=== PATIENT | female | born 1955 | race Caucasian/White ===

== ENCOUNTER → 2018-01-29 01:47 | Outpatient (CLI) | payer BC, SELFPAY ==
[2018-01-29 10:48] LABS: Anion Gap 9.7 mmol/L (3-11); BUN 16 mg/dL (7-18); CO2 29.3 mmol/L (21.0-32.0); CREATININE 1.04 mg/dL (0.55-1.02); Calcium 9.1 mg/dL (8.5-10.1); Chloride 104 mmol/L (98-107); Cholesterol 184 mg/dL (50-200); Estimated GFR 53.52 (mL/min/1.73m2); Glucose 129 mg/dL (70-100); HDL Cholesterol 54 mg/dL (40-60); LDL CHOLESTEROL 115 mg/dL (<100); Potassium 3.6 mmol/L (3.5-5.1); Sodium 143 mmol/L (136-145); Triglyceride 113 mg/dL (30-150)
== END ==
DX: E78.5 Hyperlipidemia, unspecified (principal); I10 Essential (primary) hypertension
CPT/HCPCS: 36415; 80048; 80061; 83721

== ENCOUNTER 2018-03-24 11:26 | Outpatient (CLI) | payer BC, SELFPAY ==
[2018-03-24 13:24] LABS: Hemoglobin A1C 6.1 % (4.5-6.2)
== END 2018-03-24 11:46 ==
DX: R73.01 Impaired fasting glucose (principal)
CPT/HCPCS: 36415; 83036

== ENCOUNTER 2019-04-25 01:42 | Outpatient (CLI) | payer BC, SELFPAY ==
[2019-04-25 09:38] LABS: Hemoglobin A1C 6.2 % (4.5-6.2)
[2019-04-25 10:03] LABS: ALT 34 U/L (14-59); AST 15 U/L (15-37); Albumin 3.8 g/dL (3.4-5.0); Alkaline Phosphatase 60 U/L (46-116); Anion Gap 9.9 mmol/L (3-11); BUN 20 mg/dL (7-18); Bilirubin, Total 0.4 mg/dL (0.2-1.0); CO2 31.1 mmol/L (21.0-32.0); CREATININE 0.99 mg/dL (0.55-1.02); Calcium 9.4 mg/dL (8.5-10.1); Calculated LDL 99 mg/dL; Chloride 101 mmol/L (98-107); Cholesterol 169 mg/dL (50-200); Estimated GFR 56.47 (mL/min/1.73m2); Glucose 140 mg/dL (70-100); HDL Cholesterol 49 mg/dL (40-60); Potassium 3.6 mmol/L (3.5-5.1); Sodium 142 mmol/L (136-145); Total Protein 7.7 g/dL (6.4-8.2); Triglyceride 106 mg/dL (30-150)
== END 2019-04-25 02:02 ==
DX: I10 Essential (primary) hypertension (principal); Z00.00 Encounter for general adult medical examination without abnormal findings; Z13.220 Encounter for screening for lipoid disorders; E03.9 Hypothyroidism, unspecified
CPT/HCPCS: 36415; 80053; 80061; 83036

== ENCOUNTER 2019-04-28 02:11 | Outpatient (CLI) | payer BC, SELFPAY ==
--- NOTE | 2019-04-28 12:21 | DI.MAMMO_ITS ---
EXAM: MG MAMMO SCREENING CLINICAL HISTORY: screening Z12.39 TECHNIQUE: Mammograms were interpreted according to the usual protocol including computer analysis w Typesafe system, tomosynthesis and C-view imaging. COMPARISON: Comparison with previous examinations including March 2016 FINDINGS: The breasts are heterogeneously dense with multiple areas of focal asymmetric density seen bilaterall y. No dominant mass or clumped microcalcification is seen. Comparison with previous examinations in cluding March 2016 shows no gross interval change in appearance in comparison with the previous marky dies. IMPRESSION: No specific evidence of malignancy at this time. Routine screening examinations are suggested yearly intervals in this age group according to the ACS/ACR guidelines. Category 1, breast density category C. BI-RADS Cat 1 - Negative Breast Density - Category C - Heterogeneously dense
== END 2019-04-28 02:31 ==
DX: Z12.31 Encounter for screening mammogram for malignant neoplasm of breast (principal)
CPT/HCPCS: 77063; 77067

== ENCOUNTER 2019-05-26 01:35 | Outpatient (CLI) | payer BC, SELFPAY ==
--- NOTE | 2019-05-26 14:51 | DI.US_ITS ---
EXAM: US CAROTID CLINICAL HISTORY: decreased right carotid pulse, carotid stenosis rt, I65.21 occlusion and stenosis, rt carotid artery TECHNIQUE: Ultrasound performed using standard protocol. COMPARISON: No exams were available for comparison FINDINGS: There is a small focus of plaque in the left common carotid bulb. The velocity measurements in the in ternal carotid arteries are within the normal range. The vessels are noted to be tortuous, right grea ter than left. Both vertebral arteries show antegrade flow. IMPRESSION: Small amount of plaque in the left common carotid bulb. Tortuous vessels. No evidence of significant stenosis or occlusion.
== END 2019-05-26 01:55 ==
PROVIDERS: Visit Provider Emergency Medicine
DX: I65.21 Occlusion and stenosis of right carotid artery (principal); I77.89 Other specified disorders of arteries and arterioles; R09.89 Other specified symptoms and signs involving the circulatory and respiratory systems
CPT/HCPCS: 93880

== ENCOUNTER 2020-07-19 03:00 | Outpatient (CLI) | payer OTHER, SELFPAY ==
[2020-07-19 09:41] LABS: HCT 46.3 % (36.0-46.0); HGB 15.4 g/dL (11.2-15.7); MCH 29.6 pg (27.0-33.0); MCHC 33.3 % (32.0-36.0); MPV 10.4 fL (8.0-11.0); Platelet Count 240 10^3/uL (130-400); RDW-SD 42.7 fL; WBC 7.19 10^3/uL (4.4-10.8)
[2020-07-19 10:08] LABS: Hemoglobin A1C 6.9 % (<5.7)
[2020-07-19 10:54] LABS: Iron 99 ug/dL (50-170)
[2020-07-19 11:05] LABS: ALT 55 U/L (14-59); AST 28 U/L (15-37); Albumin 4.2 g/dL (3.4-5.0); Alkaline Phosphatase 54 U/L (46-116); Anion Gap 7.2 mmol/L (3-11); BUN 19 mg/dL (7-18); Bilirubin, Total 0.5 mg/dL (0.2-1.0); CO2 28.8 mmol/L (21.0-32.0); Calcium 9.5 mg/dL (8.5-10.1); Chloride 102 mmol/L (98-107); Estimated GFR 55.64 (mL/min/1.73m2); Ferritin 244 ng/mL (8-252); Glucose 151 mg/dL (74-106); Sodium 138 mmol/L (136-145); TSH (W/Ref FT4) 3.06 uIU/mL (0.36-3.74); Total Protein 7.8 g/dL (6.4-8.2)
== END 2020-07-19 03:20 ==
DX: I10 Essential (primary) hypertension (principal); D50.9 Iron deficiency anemia, unspecified; R73.01 Impaired fasting glucose; R42 Dizziness and giddiness; G47.00 Insomnia, unspecified
CPT/HCPCS: 36415; 80053; 85027; 82728; 83036; 83540; 84443

== ENCOUNTER 2021-07-30 01:58 | Outpatient (CLI) | payer BC, SELFPAY ==
[2021-07-30 10:58] LABS: Hemoglobin A1C 6.3 % (<5.7)
[2021-07-30 11:46] LABS: ALT 35 U/L (14-59); AST 22 U/L (15-37); Albumin 4.3 g/dL (3.4-5.0); Alkaline Phosphatase 57 U/L (46-116); Anion Gap 10.1 mmol/L (3-11); BUN 24 mg/dL (7-18); Bilirubin, Total 0.5 mg/dL (0.2-1.0); CO2 27.9 mmol/L (21.0-32.0); Calcium 9.8 mg/dL (8.5-10.1); Chloride 103 mmol/L (98-107); Estimated GFR 55.47 (mL/min/1.73m2); Glucose 123 mg/dL (74-106); Potassium 3.9 mmol/L (3.5-5.1); Sodium 141 mmol/L (136-145)
== END 2021-07-30 01:59 | disposition home or self-care (01) ==
LOC: LBO 01:58
DX: I10 Essential (primary) hypertension (principal); R73.01 Impaired fasting glucose
CPT/HCPCS: 36415; 80053; 83036

== ENCOUNTER 2022-09-22 03:29 | Outpatient (CLI) | payer BC, SELFPAY ==
[2022-09-22 10:37] LABS: ALT 40 U/L (14-59); AST 26 U/L (15-37); Albumin 4.1 g/dL (3.4-5.0); Alkaline Phosphatase 56 U/L (46-116); BUN 23 mg/dL (7-18); Bilirubin, Total 0.5 mg/dL (0.2-1.0); CREATININE 1.1 mg/dL (0.55-1.02); Calcium 9.6 mg/dL (8.5-10.1); Calculated LDL 109 mg/dL (<100); Chloride 102 mmol/L (98-107); Cholesterol 191 mg/dL (<200); Estimated GFR 54.73 (mL/min/1.73m2); Glucose 158 mg/dL (74-106); HDL Cholesterol 59 mg/dL (40-60); Potassium 3.7 mmol/L (3.5-5.1); Sodium 143 mmol/L (136-145); Total Protein 8.1 g/dL (6.4-8.2); Triglyceride 118 mg/dL (<150)
== END 2022-09-22 03:30 | disposition home or self-care (01) ==
PROVIDERS: PCP Nurse Practitioner Family; Visit Provider Nurse Practitioner Family
DX: E11.9 Type 2 diabetes mellitus without complications (principal)
CPT/HCPCS: 36415; 80053; 80061

== ENCOUNTER 2022-10-07 10:31 | Day surgery (SDC) | payer BC, SELFPAY ==
--- NOTE | 2022-10-06 13:11 | PDOC.DSDIS_ITS ---
Date of service: 10/07/22 Time of Service: 13:26 Discharge Plan Disposition Patient Disposition: Home Condition: Good Discharge Details Reason For Visit: colon scope Attending Provider: Ruthann Byrd Primary Care Provider: Aiden Laughlin Home Meds and New Rx's Prescriptions: Continued amitriptyline 25 mg tablet 25 mg PO HS Qty: 90 4RF Rx Instructions: 1 TAB HS hydrochlorothiazide 25 mg tablet 25 mg PO QAM Qty: 90 4RF propranolol 10 mg tablet 10 mg PO BID Qty: 180 4RF Rx Instructions: 1 TAB BID melatonin 5 MG tablet 5 mg PO HS sumatriptan succinate 100 mg tablet See Rx Instructions .ROUTE .COMPLEX Qty: 16 4RF Dose Instruction: TAKE 1/2 TABLET BY MOUTH DIRECTED FOR MIGRAINE Rx Instructions: TAKE 1/2 TABLET BY MOUTH DIRECTED FOR MIGRAINE Discontinued bisacodyl [Dulcolax (bisacodyl)] 5 mg tablet,delayed release (DR/EC) 5 mg PO .Take as directed Qty: 4 0RF polyethylene glycol 3350 17 gram/dose powder 238 g PO DIRECTED Qty: 238 0RF No Action metformin 500 mg tablet 500 mg PO HS losartan 25 mg tablet 25 mg PO HS Discharge Instructions Additional Instructions: DSU Colonoscopy Post- Op Instructions Instructions for Everyone who is given Anesthesia: For your safety, please do the following for the next twenty-four (24) hours: *Do Not operate a motor vehicle (car, truck, motorcycle, etc.) *Do Not drink alcoholic beverages or use any recreational drugs for the first 24 hours or while taking pain medications. The medications in your body may have a reaction that can be dangerous. *Do Not make any important decisions or sign any important papers. Findings: X3 Polyps Follow up: My office will send a letter in 2-3 weeks; as to what type of polyps and when to repeat the scope, most likely in 3 years time. 1. No lifting over 20 pounds or strenuous activity for the first 24 hours after your procedure. After 24 hours there are no restrictions on your activity but you may feel fatigued for a few days. 2. After you arrive home you may have a light meal and return to your normal diet as you can tolerate it without feeling sick to your stomach. 3. You may have a bloated, gaseous feeling in your belly (abdomen) after a colonoscopy. Passing gas and belching will help. Walking or lying down on your left side with your knees flexed may relieve the discomfort. Call the office at [phone] (Office) or [phone] (Hospital) right away if you notice any of the following: a.Vomiting of blood or ?coffee ground stools?. b.Rectal bleeding 1Tbsp, blood clots or continuous bleeding. c.Severe belly (abdominal) pain. d.A hard distended belly (abdomen) and an inability to pass gas. 4. Please don?t expect to have a normal BM (bowel movement) for 2-3 days after your procedure. 5. If there are questions regarding the findings of your procedure, please contact your doctor 6. If you are unable to contact your doctor with a problem, contact the hospital at [phone]. 7. Continue all your regular medications unless directed otherwise. I understand the above instructions and have no questions. Signature of Patient or Adult Escort Name of Responsible Adult Escort Signature of Nurse Date/Time Activity:: see above Diet:: see above Discharge Orders Discharge Orders: Discharge Order (Routine); Ordered 10/07/22 Ordered By: Ruthann Byrd
[2022-10-07 10:44] VITALS: BP 143/86; PULSE 80; RESP 16; TEMP 36.8; O2SAT 95
--- NOTE | 2022-10-07 11:20 | W.ANESPRE ---
General Info Date of Service Date Performed: 10/07/22 Height: 5 ft 0.5 in Weight: 88.2 kg Body Mass Index (BMI): 37.3 Surgical Procedure: Operation Date: 10/07/22 10:05 Proposed Procedure Side Surgeon p Colonoscopy possible Polypectomy Ruthann Byrd, DO Meds Allergies and Home Medications Allergies Allergy/AdvReac Type Severity Reaction Status Date / Time No Known Allergies Allergy Verified 10/07/22 10:42 Home Medication Medication Instructions Recorded melatonin 5 mg tablet 5 mg PO HS 03/18/17 sumatriptan succinate 100 mg tablet See Rx Instructions .Route 07/16/22 .COMPLEX #16 tabs amitriptyline 25 mg tablet 25 mg PO HS #90 tab-caps 07/22/22 hydrochlorothiazide 25 mg tablet 25 mg PO QAM #90 tabs 07/22/22 propranolol 10 mg tablet 10 mg PO BID #180 tab-caps 07/22/22 losartan 25 mg tablet 25 mg PO HS 10/06/22 metformin 500 mg tablet 500 mg PO HS 10/06/22 Current Visit Medications: Current Medications Generic Name Dose Route Start Last Admin Trade Name Freq PRN Reason Stop Dose Admin Hyoscyamine Sulfate 0.125 mg 10/07/22 09:16 Hyoscyamine 0.125 Mg Sl/Oral/Chew SL DIRECTED PRN Ringer's Solution 1,000 mls @ 80 mls/hr 10/07/22 06:00 IV 10/07/22 23:59 [facility] IV Miscellaneous Supplies 1 each 10/07/22 06:00 Iv Access IV 10/07/22 23:59 DIRECTED [facility] Ondansetron HCl 4 mg 10/07/22 09:16 Ondansetron 4 Mg/2 Ml Vial IVP Q4H PRN PRN Nausea / Vomiting Sodium Chloride 0 ml 10/07/22 06:00 Normal Saline Flush 10 Ml Syr IV 10/07/22 23:59 PRN PRN Sodium Chloride 0 ml 10/07/22 06:00 Normal Saline 10 Ml Vial IJ 10/07/22 23:59 DIRECTED PRN Sterile Water 0 ml 10/07/22 06:00 Water,Injection,Sterile 10 Ml Vial IJ 10/07/22 23:59 DIRECTED PRN PFSH Active Problems Active Problems: Problem Status Onset Code Positive colorectal cancer screening using Cologuard test R19.5 Hypertension I10 Insomnia 03/12/16 G47.00 Lumbago M54.5 Left knee pain 02/23/15 M25.562 Migraine G43.909 Neck pain M54.2 Numbness and tingling in both hands 03/12/16 R20.0, R20.2 Retinal hemorrhage 05/21/05 H35.60 Vertigo 02/16/14 R42 Increased body mass index (BMI) R63.8 Elevated fasting glucose ~01/2016 R73.01 Status post abdominal hysterectomy Z90.710 Onychomycosis B35.1 History of tobacco use Z87.891 Dizziness R42 Diabetes E11.9 Medical History 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) Surgical History Surgical History Abdominal hysterectomy Appendectomy Bilateral salpingectomy with oophorectomy Tobacco Smoking/Tobacco Use Status: Former Tobacco Use Passive smoking exposure: Yes Second hand exposure: Yes Alcohol Alcohol Intake: current Alcohol intake frequency: a few times a month Substance Use Substance use: Never Substance use type: does not use Details: alcohol t-5 Vital Signs and Lab Results Vital Signs Most Recent Vital Signs in EMR: Most Recent Vital Signs Temp Pulse Resp BP Pulse Ox 36.8 C 80 16 143/86 H 95 10/07/22 10:44 10/07/22 10:44 10/07/22 10:44 10/07/22 10:44 10/07/22 10:44 Point of Care Results Point of Care Results: Finger Stick Blood Glucose 140 10/07/22 10:48 Lab Results Blood Type / Crossmatch: No Data to Display Complete Blood Count: No Data to Display Complete Metabolic Panel: Sodium 143 mmol/L (136-145) 09/22/22 09:39 Potassium 3.7 mmol/L (3.5-5.1) 09/22/22 09:39 Chloride 102 mmol/L (98-107) 09/22/22 09:39 Carbon Dioxide 34.0 mmol/L (21.0-32.0) H 09/22/22 09:39 BUN 23 mg/dL (7-18) H 09/22/22 09:39 Creatinine 1.1 mg/dL (0.55-1.02) H 09/22/22 09:39 Est GFR (CKD-EPI 2020) 54.73 (mL/min/1.73m2) 09/22/22 09:39 Calcium 9.6 mg/dL (8.5-10.1) 09/22/22 09:39 Albumin 4.1 g/dL (3.4-5.0) 09/22/22 09:39 Glucose 158 mg/dL (74-106) H 09/22/22 09:39 Liver Function Panel: Alanine Aminotransferase (ALT/SGPT) 40 U/L (14-59) 09/22/22 09:39 Aspartate Amino Transf (AST/SGOT) 26 U/L (15-37) 09/22/22 09:39 Coagulation Panel: No Data to Display Cardiac Panel: No Data to Display Arterial Blood Gas: No Data to Display Venous Blood Gas: No Data to Display Pancreas Panel: No Data to Display Thyroid Panel: No Data to Display Infectious Disease: No Data to Display Blood Cultures: No Data to Display Toxicology Panel: No Data to Display Imaging and Studies Imaging and Studies Study information below may be from another EMR and interpreted by another provider. Please see original notes in EMR for more complete details. Carotid Artery Summary:: 05/26/2019: IMPRESSION: Small amount of plaque in the left common carotid bulb. Tortuous vessels. No evidence of significant stenosis or occlusion. Anesthesia Assessment and Plan Anesthesia History Personal History: No History of Anesthesia Complications Family History: No Family History of Anesthesia Complications Exercise Tolerance Exercise Tolerance: Metabolic Equivalents>4 Pertinent Negatives Pertinent Negatives: No Symptoms of GERD, No Major Cardiovascular Symptoms or Complaints and No Major Pulmonary Symptoms or Complaints Cardiac & Pulmonary Exam Cardiac Exam: Normal S1/S2 Heart Sounds Pulmonary Exam: Clear Bilateral Breath Sounds Implantable Cardiac Device Does patient have a Pacemaker or an ICD?: No Airway Exam Known Difficult Airway: No Mallampati Class: 2 Mouth Opening: Normal (> 3cm) Thyromental Distance: Greater than 3 cm Neck Range of Motion: Full ROM Neck Circumference: Normal Teeth Condition: Normal Dentition ASA Classification ASA Score: ASA 2 Emergency Case?: No NPO Status NPO Status: NPO Clears >2 hours, Solids >8 hours Anesthesia Plan Resuscitation Status: Full Code Anesthesia Technique: General Anesthesia Airway Planned: Natural Airway Monitors Used: Standard Monitors
[2022-10-07 11:23] VITALS: BMI 37.3
[2022-10-07] MEDS: Lactated Ringers 1,000 ML 80 ML IV (12:21)
--- NOTE | 2022-10-07 12:38 | BOWEL_PTH ---
PATIENT: Noemi Simmons LOC: [facility] U#:[id number] AGE/SX: 67/F ROOM: RE10/07/[address]: Ruthann Byrd : 1955 BED: DIS: 10/07/2022 SPEC #: [id number] RECD: 10/07/22 13:40 STATUS: JAI REQ #: [id number] LAURA: 10/07/22 12:[address]: Ruthann Byrd DEPT: Surgical Specimen RECD BY: Dianelys Sommers ENTERED: 10/07/22 13:42 SP TYPE: Bowel OTHR DR: Aiden Fraser, NATHAN Tissues: 1 - BIOPSY BOWEL 2 - BIOPSY BOWEL 3 - BIOPSY BOWEL Procedures: GROSS AND MICRO LEVEL 4 Comments: [id number]
--- NOTE | 2022-10-07 13:20 | W.COLOREPORT ---
Date of service: 10/07/22 Time of Service: 13:20 Colonoscopy Report Date of procedure: 10/07/22 Pre-op diagnosis general: + Cologuard Post-op diagnosis procedure note: other (polyp x3) Surgeon: Ruthann Byrd Anesthesia Type: General:No Airway Estimated blood loss (mL): 1 Pathology: other Complications: None Disposition: same day Prep: Miralax/Dulcolax Retraction Time: 25 Procedure Description: After informed consent was obtained the patient was taken to the procedure room and placed in a left decubitous position. Monitors were applied and a time out was done. The patients name, date of , procedure, allergies to medications and metal in their body was reviewed. The patient was then sedated. Once sedated and comfortable a rectal exam was done. External exam was normal. Internal exam revealed a normal sphincter tone and no palpable masses. The scope was then introduced and retrofelexed. No internal hemorrhoids were identified. The scope was then advanced to the cecum w/some difficulty. The colon is on a long floppy mesentery. The colon was also quite spasmodic. We did have to use sigmoid pressure to advance the scope into the cecum. The TI and appendiceal orifice were identified. The prep was BBPS 2 in all segments for a total of 6. The scope was then slowly retracted over 25 minutes back into the rectum. She had 2 polyps that are removed with a cold snare. One was at 20 cm and one was at 80 cm. All specimens are retrieved and no bleeding is noted. The polyp at 20 cm was a 5 mm and pedunculated. The polyp at 80 cm is 0.75 cm and flat. She had a flat 5 mm polyp in the rectum that is removed with a cold biting snare. There is no diverticula noted. The mucosa is pink and healthy with a normal vascular pattern the scope was removed and the patient was woken up and taken back to Same day surgery in stable condition. The patient tolerated the procedure well and there were no immediate complications. Follow up: The patient should follow up in 5 years unless they develop changes in bowel habits or other new gastrointestinal complaints.
[2022-10-07 13:22] VITALS: BP 108/62; PULSE 78; RESP 16; TEMP 36.5; O2SAT 98
--- NOTE | 2022-10-07 13:30 | W.ANESPOSTOP ---
Postoperative Evaluation Date, Time and Location Date Performed: 10/07/22 Time Performed: 13:27 Patient Location: Day Surgery Unit Vital Signs Most Recent Imported Vital Signs: Most Recent Vital Signs Temp Pulse Resp BP Pulse Ox 36.5 C 78 16 108/62 98 10/07/22 13:22 10/07/22 13:22 10/07/22 13:22 10/07/22 13:22 10/07/22 13:22 Pain Score Most Recent Pain Score: Most Recent Pain Score Pain Level 0 10/07/22 13:22 Assessment Mental Status: Awake (Alert & Oriented to Patient Baseline) Airway and Respiratory Function: Patent airway with normal (patient baseline) respiratory exam Cardiovascular Function: Hemodynamically Stable Hydration Status: Adequately Hydrated Nausea & Vomiting: No Nausea or Vomiting Pain: Pt. Denies Any Pain Peripheral Nerve Block: Patient did not receive a nerve block
[2022-10-07 13:52] VITALS: BP 108/76; PULSE 63; RESP 16; TEMP 36.6; O2SAT 100
== END 2022-10-07 14:10 | disposition home or self-care (01) ==
PROVIDERS: PCP Nurse Practitioner Family; Visit Provider Surgery
PROC: 0DJD8ZZ Inspection of Lower Intestinal Tract, Via Natural or Artificial Opening Endoscopic (ICD-10-PCS; CPT 45378; principal; 2022-10-07 10:00)
DX: R19.5 Other fecal abnormalities (principal); K63.5 Polyp of colon; E11.9 Type 2 diabetes mellitus without complications; Z79.84 Long term (current) use of oral hypoglycemic drugs
CPT/HCPCS: 45385; 88305; J2704

== ENCOUNTER 2022-11-12 02:15 | Outpatient (CLI) | payer BC, SELFPAY | END 2022-11-12 02:35 | LOC: DI 02:15 | PROVIDERS: PCP Nurse Practitioner Family; Visit Provider Nurse Practitioner Family | DX: Z12.31 Encounter for screening mammogram for malignant neoplasm of breast (principal) | CPT/HCPCS: 77063; 77067 ==

== ENCOUNTER 2023-11-09 05:36 | Outpatient (CLI) | payer MEDICARE, SELFPAY ==
[2023-11-09 13:17] LABS: Anion Gap 11.8 mmol/L (3-11); BUN 26 mg/dL (7-18); CO2 27.2 mmol/L (21.0-32.0); CREATININE 1.3 mg/dL (0.55-1.02); Calcium 9.7 mg/dL (8.5-10.1); Chloride 101 mmol/L (98-107); Estimated GFR 44.51 (mL/min/1.73m2); Glucose 125 mg/dL (74-106); Potassium 3.5 mmol/L (3.5-5.1); Sodium 140 mmol/L (136-145)
[2023-11-09 19:24] LABS: HIV-1/2 Ag & Ab Screen Negative (Negative)
[2023-11-09 19:32] LABS: Hepatitis C Ab w Rflx HCV PCR Negative (Negative)
== END 2023-11-09 05:37 | disposition home or self-care (01) ==
LOC: LOS 05:36
PROVIDERS: PCP Nurse Practitioner Family; Visit Provider Nurse Practitioner Family
DX: E11.9 Type 2 diabetes mellitus without complications (principal); Z11.59 Encounter for screening for other viral diseases; Z11.4 Encounter for screening for human immunodeficiency virus [HIV]
CPT/HCPCS: 36415; 80048; 86803; 87389; 83036

== ENCOUNTER 2024-06-03 21:53 | Outpatient (REF) | payer MEDICARE, SELFPAY ==
[2024-06-03 22:05] LABS: Bilirubin Negative (Negative); Blood Moderate (Negative); Clarity Cloudy (Clear); Glucose Negative (Negative); Ketones Trace mg/dL (Negative); Leukocyte Esterase Moderate (Negative); Nitrite Negative (Negative); Specific Gravity 1.025 (1.005-1.025); pH 5.5 (5-8)
[2024-06-03 22:18] LABS: Bacteria Many HPF (Negative); C & S Indicated? Yes; Crystals Negative HPF (Negative); Epithelial Cells Few HPF (Negative); Mucus Negative (Negative); RBC 20-50 HPF (0-2)
== END 2024-06-03 21:54 | disposition home or self-care (01) ==
LOC: LBN 21:53
PROVIDERS: PCP Nurse Practitioner Family; Visit Provider Nurse Practitioner Family
DX: R30.0 Dysuria (principal); B96.29 Other Escherichia coli [E. coli] as the cause of diseases classified elsewhere; R82.89 Other abnormal findings on cytological and histological examination of urine
CPT/HCPCS: 87077; 81003; 81015; 87086; 87186

== ENCOUNTER 2024-10-27 00:46 | Outpatient (CLI) | payer MEDICARE, SELFPAY ==
--- NOTE | 2024-10-27 08:30 | DI.DEXA_ITS ---
Exam(s) XR DEXA BONE DENSITY W/WO MICHEL EXAM: XR DEXA BONE DENSITY W/WO MICHEL CLINICAL HISTORY: screening for osteoporosis in postmenopausal status,z78.0 TECHNIQUE: HoloPetro[employer] Horizon C densitometer analysis of left hip, lumbar spine and left forearm. Lat eral survey image of the thoracic and lumbar spine. COMPARISON: No exams were available for comparison FINDINGS: Lateral view of the thoracic and lumbar spine shows no evidence of compression fractures. Bone mineral density measurements of the lumbar spine correspond to a total T-score of 0.6, in the n ormal range. Bone mineral density measurements of the left hip correspond to a total T-score of -0.1. The femora l neck T-score is -0.4, in the normal range.. Theleft forearm bone mineral density measurements correspond to a T-score of the distal 3rd of 0.7, in the normal range.. IMPRESSION: Normal bone mineral density.
== END 2024-10-27 01:06 ==
LOC: DI 00:46
PROVIDERS: PCP Nurse Practitioner Family; Visit Provider Nurse Practitioner Family
DX: Z78.0 Asymptomatic menopausal state (principal); Z13.820 Encounter for screening for osteoporosis
CPT/HCPCS: 77080

== ENCOUNTER 2024-12-15 13:54 | Outpatient (REF) | payer MEDICARE, SELFPAY ==
[2024-12-15 20:52] LABS: Bilirubin Negative (Negative); Blood Large (Negative); Clarity Cloudy (Clear); Glucose Negative (Negative); Ketones Negative (Negative); Leukocyte Esterase Large (Negative); Nitrite Negative (Negative); Urobilinogen 0.2 mg/dL (Up to 0.2); pH 5.5 (5-8)
[2024-12-15 21:11] LABS: Bacteria Packed HPF (Negative); C & S Indicated? Yes; Casts Negative LPF (Negative); Crystals Many Amorphous HPF (Negative); Epithelial Cells Few HPF (Negative); Mucus Negative (Negative); RBC >50 HPF (0-2); WBC 20-50 HPF (0-5)
== END 2024-12-15 13:55 | disposition home or self-care (01) ==
LOC: LBN 13:54
PROVIDERS: PCP Nurse Practitioner Family; Visit Provider Nurse Practitioner Family
DX: R39.9 Unspecified symptoms and signs involving the genitourinary system (principal); B96.29 Other Escherichia coli [E. coli] as the cause of diseases classified elsewhere; R82.89 Other abnormal findings on cytological and histological examination of urine
CPT/HCPCS: 87077; 81003; 81015; 87086; 87186

== ENCOUNTER 2024-12-16 00:30 | Outpatient (CLI) | payer MEDICARE, SELFPAY ==
--- NOTE | 2024-12-16 07:15 | DI.US_ITS ---
Exam(s) US RENAL EXAM: US RENAL CLINICAL HISTORY: evaluate renal stones, HEMATURIA, R31.9. TECHNIQUE: [place] scale, color and spectral Doppler were used. COMPARISON: No exams were available for comparison FINDINGS: Renal size in cm: Right: 9.1. Left: 9.1. Echogenicity: Normal. Hydronephrosis: No. Cyst or mass: No. Nephrolithiasis: No. Other findings: None. Bladder:Normal. Ureteral jets: Right: Visualized and unremarkable. Left: Visualized and unremarkable. Prevoid vol:81 cc Postvoid vol:0 cc Renal color flow: Symmetric and within normal limits. IMPRESSION: Unremarkable examination. DATA REPOSITORY:
== END 2024-12-16 00:50 ==
LOC: DI 00:30
PROVIDERS: PCP Nurse Practitioner Family; Visit Provider Nurse Practitioner Family
DX: R31.9 Hematuria, unspecified (principal); R82.89 Other abnormal findings on cytological and histological examination of urine; B96.29 Other Escherichia coli [E. coli] as the cause of diseases classified elsewhere
CPT/HCPCS: 76770

== ENCOUNTER → 2025-05-15 02:11 | Outpatient (CLI) | payer MEDICARE, SELFPAY ==
--- NOTE | 2025-05-15 07:30 | DI.RAD_ITS ---
Exam(s) XR FOOT RT COMPLETE EXAM: XR FOOT RT COMPLETE CLINICAL HISTORY: Mass posterior calcaneous bone,r22.40. TECHNIQUE: 2D digital imaging was performed of the right foot. Three images were obtained. AP, oblique and lateral views were obtained. COMPARISON: There are no priors for comparison. FINDINGS: BONES: No acute fracture is present. No bony destructive lesion is seen. There is a moderate size enthesophyte at the posterior calcaneus. There is a tiny plantar calcaneal spur. JOINTS: No dislocation present. The joint spaces are well maintained. SOFT TISSUE: Normal. IMPRESSION: Moderate enthesophyte at the posterior calcaneus. DATA REPOSITORY: RADIATION DOSE DELIVERED:
== END ==
LOC: DI 02:11
PROVIDERS: PCP Nurse Practitioner Family; Visit Provider Nurse Practitioner Family
DX: R22.40 Localized swelling, mass and lump, unspecified lower limb (principal)
CPT/HCPCS: 73630